=== PATIENT | female | born 1970 | race African-American/Black ===

== ENCOUNTER 2016-04-02 12:25 | Emergency (ER) | payer OTHER ==
[~2016-04-02] VITALS: Ht 172.7 cm; Wt 95.6 kg
[~2016-04-02 12:25] MED LIST: AMLODIPINE; CLONIDINE HCL0.1 MG PO; CYMBALTA; CYMBALTA PO; CYMBALTA60 MG PO; Cymbalta PO; FLEXERIL5 MG PO; Imitrex PO; LYRICA; Lopressor PO; METHOCARBAMOL750 MG PO; MOBIC7.5 MG PO; NEXIUM20 MG PO; NORCO 5/3251 TABLET PO; NORVASC10 MG PO; NORVASC2.5 MG PO; PEN-VEE K,VEET500 MG PO; PRILOSEC40 MG PO; PROTONIX20 MG PO; SPIRIVA1 INHALATI IH; SUMATRIPTAN SU100 MG PO; TOPROL XL; TOPROL XL100 MG PO; TORADOL10 MG PO; TORADOL30 MG/ML IM; TRAMADOL HCL50 MG PO; ULTRAM ER 100100 MG PO; WELLBUTRIN XL300 MG PO; ZANTAC150 MG PO; ZOFRAN4 MG PO; ZYVOX600 MG PO; ZyrTEC PO; predniSONE PO; vitamins
[2016-04-02 13:11] LABS: HEMATOCRIT 34.2 % (36.0-46.0); MCH 30.2 PG (29.0-34.0); MCHC 33.9 G/DL (30.0-36.0); MCV 89.1 FL (83-99); MEAN PLAT.VOLUME 10.9 uM^3 (9.5-12.4); PLATELET COUNT 155 K/uL (156-360); RBC DIS.WIDTH-CV 13.1 % (11.8-14.6); RBC DIS.WIDTH-SD 41.8 % (39-53); RED BLOOD COUNT 3.84 M/uL (3.80-5.20); WHITE BLOOD COUNT 4.8 K/uL (4.1-10.2)
[2016-04-02 13:17] LABS: CHLORIDE 113 mEq/L (99-109); POTASSIUM 3.4 mEq/L (3.7-5.4); SODIUM 145 mEq/L (136-147)
[2016-04-02 13:19] LABS: GLUCOSE 66 mg/dL (70-99)
[2016-04-02 13:20] LABS: ANION GAP 8 MEQ/L (2-14)
[2016-04-02 13:21] LABS: TOTAL BILIRUBIN 0.3 mg/dL (0.0-1.0)
[2016-04-02 13:23] LABS: ALKALINE PHOSPHATASE 52 IU/L (3-129); GFR ESTIMATE (CALCULATED) > 59 mL/min/
[2016-04-02 13:24] LABS: UREA NITROGEN (BUN) 20 mg/dL (9-23)
[2016-04-02 13:55] LABS: ADD MIUA? YES; BILIRUBIN NEGATIVE; BLOOD MODERATE; COLOR YELLOW ((YELLOW)); GLUCOSE (STRIP) NEGATIVE; KETONES NEGATIVE; LEUKOCYTES TRACE; NITRITE NEGATIVE; PROTEIN (STRIP) 30; SPECIFIC GRAVITY 1.023 (1.000-1.030); UROBILINOGEN 0.2 MG/DL (0.2-1.0)
[2016-04-02 14:02] LABS: BACTERIA NONE SEEN /HPF; EPITHELIAL CELLS RARE /HPF; MUCUS TRACE /LPF
[2016-04-02] MEDS ORDERED: MOBIC7.5 MG PO (15:00)
[2016-04-02] MEDS ORDERED: KEFLEX500 MG PO (15:00)
[2016-04-02 15:18] VITALS: BP 127/88
== END 2016-04-02 15:21 | disposition home or self-care (01) ==
LOC: EXP 12:25 → EME 12:25 → EXP 15:21
PROVIDERS: Nurse Practitioner Family
DX: N30.90 Cystitis, unspecified without hematuria (principal); N93.9 Abnormal uterine and vaginal bleeding, unspecified; V49.50XA Passenger injured in collision with unspecified motor vehicles in traffic accident, initial encounter; Z90.710 Acquired absence of both cervix and uterus; Z80.41 Family history of malignant neoplasm of ovary; I10 Essential (primary) hypertension; D64.9 Anemia, unspecified; D69.6 Thrombocytopenia, unspecified; E87.6 Hypokalemia; K59.00 Constipation, unspecified
CPT/HCPCS: 74177; 80053; 81003; 85027; 87086; 99281; 99284; J1885; J7040